=== PATIENT | female | born 1955 | race American Indian/Alaskan Native ===

== ENCOUNTER 2020-09-23 06:15 | Inpatient (IN) | payer MEDICARE ==
[2020-09-23 07:45] LABS: Basophils % (Auto) 0.5 % (0.0-1.8); Eosinophils # (Auto) 0.1 K/mm3 (0.0-0.4); Eosinophils % (Auto) 1.2 % (0.0-4.3); Hematocrit 35.8 % (30.3-42.9); Hemoglobin 11.7 gm/dl (10.1-14.3); Lymphocytes # (Auto) 1.6 K/mm3 (1.2-5.4); Lymphocytes % (Auto) 20.3 % (13.4-35.0); Mean Corpuscular HGB Conc 33 % (30-34); Mean Corpuscular Volume 81 fl (79-97); Monocytes # (Auto) 0.6 K/mm3 (0.0-0.8); Monocytes % (Auto) 7.9 % (0.0-7.3); Platelet Count 157 K/mm3 (140-440); Red Cell Distribution Width 16.6 % (13.2-15.2)
[2020-09-23 08:30] LABS: Alanine Aminotransferase 18 units/L (7-56); Albumin 3.5 g/dL (3.9-5); Blood Urea Nitrogen 10 mg/dL (7-17); Calcium 9.4 mg/dL (8.4-10.2); Hemolysis Index 6
[2020-09-23 08:31] LABS: BUN/Creatinine Ratio 17
[2020-09-23] MEDS ORDERED: POTASSIUM CHLORIDE ER 20 MEQ TAB PO ONE (09:32)
[2020-09-23] MEDS ORDERED: POTASSIUM CHLORIDE 10 MEQ 10 MEQ/100 ML BAG IV ONE (09:32)
[2020-09-23] MEDS ORDERED: SODIUM CHLORIDE 0.9% 1000 ML 1,000 ML IV ONE (09:33)
[2020-09-23] MEDS ORDERED: ONDANSETRON 4 MG/2 ML INJ IV ONE (09:33)
[2020-09-23] MEDS ORDERED: FAMOTIDINE 20 MG/2 ML INJ IV ONE (09:33)
[2020-09-23] MEDS ORDERED: MORPHINE 2 MG/1 ML INJ ONE (11:06)
[2020-09-23] MEDS ORDERED: LORazepam 2 MG/ML VIAL ONE (11:23)
[2020-09-23] MEDS: MORPHINE 4 MG/1 ML INJ IV ONE ×2 (12:06→13:26)
--- NOTE | 2020-09-23 12:37 | Cat Scan Report ---
CT abdomen pelvis w con INDICATION: MAIN. COMPARISON: None TECHNIQUE: Abdominal and pelvic CT exam performed. All CT scans at this location are performed using CT dose reduction for ALARA by means of automated exposure control. FINDINGS: CT ABDOMEN and PELVIS: Lung Bases: Small bilateral pleural effusions. Liver: No significant abnormality. Biliary: No significant abnormality. Spleen: No significant abnormality. Pancreas: No significant abnormality. Adrenals: No significant abnormality. Kidneys: No significant abnormality. Lymphatics: No lymphadenopathy. Vasculature: No significant abnormality. Bowel/Peritoneum: No significant abnormality. Pelvis: Fundal 3.8 cm subserosal lesion as seen on image 129 of series 2. There is peritoneal nodularity seen for example in the left upper quadrant on image 57 of series 2. L arge quantity of fluid is seen throughout the abdomen and pelvis which is resulting in mass effect on the bowel and liver no ovarian masses are identified.. There is no evidence of cirrhosis. Fluid is seen extending into mediastinum to a small sliding-type hiatal hernia. Osseous Structures: No aggressive osseous lesion. Additional Findings: None IMPRESSION: 1. There is a large quantity of fluid seen throughout the abdomen and pelvis which is resulting in ma ss effect on the bowel in the liver. There is also peritoneal nodularity and the findings are concern ing for peritoneal carcinomatosis and malignant ascites. There is a lesion seen in the fundus of the uterus which could be patients primary neoplasm. Recommend dedicated ultrasound of the pelvis for fur ther evaluation and paracentesis with fluid sampling. 2. Small bilateral pleural effusions. Signer Name: Parish Milton MD Signed: 09/23/2020 12:33 PM Workstation Name: [email or web address]
[2020-09-23 13:27] LABS: Bilirubin,Urine NEG (Negative); Blood,Urine SM (Negative); Color,Urine Amber (Yellow); Mucus,Urine 3+ /HPF; Urobilinogen,Urine < 2.0 mg/dL (<2.0)
--- NOTE | 2020-09-23 13:28 | Emergency Department Report ---
ED Abdominal Pain HPI - General Chief Complaint: Abdominal Pain Stated Complaint: SOB,VOMITING,NAUSEA,CP Time Seen by Provider: 09/23/20 09:26 Source: patient Mode of arrival: Ambulatory Limitations: No Limitations - History of Present Illness Initial Comments: Patient is a 65-year-old F Italian female who is presenting with abdominal pain. Patient states she has had progressively worsening swelling and distention of the abdomen for over the past 3 months. Patient also states nausea vomiting is worsened to the point where she is unable to keep anything down at this point. Patient states she has been constipated and has to take laxatives to even have small bowel movements. She denies fevers chills cough cold or congestion. Patient denies any vaginal bleeding. Severity scale (0 -10): 4 - Related Data Allergies Allergy/AdvReac Type Severity Reaction Status Date / Time No Known Allergies Allergy Verified 09/23/20 11:08 ED Review of Systems ROS: Stated complaint: SOB,VOMITING,NAUSEA,CP Other details as noted in HPI Comment: All other systems reviewed and negative ED Past Medical Hx - Past Medical History Previous Medical History?: Yes Hx Hypertension: Yes Additional medical history: Scitica - Surgical History Past Surgical History?: No - Social History Smoking Status: Never Smoker Substance Use Type: None ED Physical Exam - General Limitations: No Limitations General appearance: alert, in no apparent distress - Head Head exam: Present: atraumatic, normocephalic - Eye Eye exam: Present: normal appearance, PERRL, EOMI - ENT ENT exam: Present: mucous membranes moist - Neck Neck exam: Present: normal inspection - Respiratory Respiratory exam: Present: normal lung sounds bilaterally. Absent: respiratory distress, wheezes, rales, rhonchi - Cardiovascular Cardiovascular Exam: Present: normal rhythm, tachycardia. Absent: systolic murmur, diastolic murmur, rubs, gallop - GI/Abdominal GI/Abdominal exam: Present: distended, tenderness, rigid, normal bowel sounds. Absent: soft, guarding, rebound - Extremities Exam Extremities exam: Present: normal inspection - Back Exam Back exam: Present: normal inspection - Neurological Exam Neurological exam: Present: alert, oriented X3 - Psychiatric Psychiatric exam: Present: normal affect, normal mood - Skin Skin exam: Present: warm, dry, intact, normal color. Absent: rash ED Course Vital Signs 10/24/20 10/24/20 06:45 09:27 Temperature 98.5 F 98.4 F Pulse Rate 112 H 104 H Respiratory 16 16 Rate Blood Pressure 156/100 Blood Pressure 175/94 [Right] O2 Sat by Pulse 93 100 Oximetry ED Medical Decision Making - Lab Data Result diagrams: 09/23/20 07:09 09/23/20 07:09 Lab Results 09/23/20 09/23/20 Range/Units 07:09 07:09 WBC 8.1 (4.5-11.0) K/mm3 RBC 4.40 (3.65-5.03) M/mm3 Hgb 11.7 (10.1-14.3) gm/dl Hct 35.8 (30.3-42.9) % MCV 81 (79-97) fl MCH 27 L (28-32) pg MCHC 33 (30-34) % RDW 16.6 H (13.2-15.2) % Plt Count 157 (140-440) K/mm3 Lymph % (Auto) 20.3 (13.4-35.0) % Nance % (Auto) 7.9 H (0.0-7.3) % Eos % (Auto) 1.2 (0.0-4.3) % Baso % (Auto) 0.5 (0.0-1.8) % Lymph # (Auto) 1.6 (1.2-5.4) K/mm3 Nance # (Auto) 0.6 (0.0-0.8) K/mm3 Eos # (Auto) 0.1 (0.0-0.4) K/mm3 Baso # (Auto) 0.0 (0.0-0.1) K/mm3 Seg Neutrophils % 70.1 H (40.0-70.0) % Seg Neutrophils # 5.7 (1.8-7.7) K/mm3 Sodium 145 (137-145) mmol/L Potassium 2.8 L* (3.6-5.0) mmol/L Chloride 96.3 L (98-107) mmol/L Carbon Dioxide 33 H (22-30) mmol/L Anion Gap 19 mmol/L BUN 10 (7-17) mg/dL Creatinine 0.6 (0.6-1.2) mg/dL Estimated GFR > 60 ml/min BUN/Creatinine Ratio 17 % Glucose 127 H (65-100) mg/dL Calcium 9.4 (8.4-10.2) mg/dL Total Bilirubin 0.50 (0.1-1.2) mg/dL AST 33 (5-40) units/L ALT 18 (7-56) units/L Alkaline Phosphatase 104 (35-129) units/L Total Protein 7.0 (6.3-8.2) g/dL Albumin 3.5 L (3.9-5) g/dL Albumin/Globulin Ratio 1.0 % Lipase 28 (13-60) units/L - Radiology Data [facility] [address] [place] [address] Cat Scan Report Signed Patient: CECY AQUINO MR #: [id number] : 1955 Acct:[id number] Age/Sex: 65 / F ADM Date: 09/23/20 Loc: ED Attending Dr: Ordering Physician: YOHANA DIOR MD Date of Service: 09/23/20 Procedure(s): CT abdomen pelvis w con Accession Number(s): [id number] cc: YOHANA DIOR MD CT abdomen pelvis w con INDICATION: MAIN. COMPARISON: None TECHNIQUE: Abdominal and pelvic CT exam performed. All CT scans at this location are performed using CT dose reduction for ALARA by means of automated exposure control. FINDINGS: CT ABDOMEN and PELVIS: Lung Bases: Small bilateral pleural effusions. Liver: No significant abnormality. Biliary: No significant abnormality. Spleen: No significant abnormality. Pancreas: No significant abnormality. Adrenals: No significant abnormality. Kidneys: No significant abnormality. Lymphatics: No lymphadenopathy. Vasculature: No significant abnormality. Bowel/Peritoneum: No significant abnormality. Pelvis: Fundal 3.8 cm subserosal lesion as seen on image 129 of series 2. There is peritoneal nodularity seen for example in the left upper quadrant on image 57 of series 2. Large quantity of fluid is seen throughout the abdomen and pelvis which is resulting in mass effect on the bowel and liver no ovarian masses are identified.. There is no evidence of cirrhosis. Fluid is seen extending into mediastinum to a small sliding-type hiatal hernia. Osseous Structures: No aggressive osseous lesion. Additional Findings: None IMPRESSION: 1. There is a large quantity of fluid seen throughout the abdomen and pelvis which is resulting in mass effect on the bowel in the liver. There is also peritoneal nodularity and the findings are concerning for peritoneal carcinomatosis and malignant ascites. There is a lesion seen in the fundus of the uterus which could be patients primary neoplasm. Recommend dedicated ultrasound of the pelvis for further evaluation and paracentesis with fluid sampling. 2. Small bilateral pleural effusions. Signer Name: Parish Milton MD Signed: 09/23/2020 12:33 PM Workstation Name: [email or web address] - Medical Decision Making Patient had a low potassium from his malnutrition. This was replaced. CT does show large amounts of ascites which likely is carcinogenic. Patient will be admitted to the hospitalist service for further management Critical care attestation.: If time is entered above; I have spent that time in minutes in the direct care of this critically ill patient, excluding procedure time. ED Disposition Clinical Impression: Hypokalemia, Uterine mass Ascites Qualifiers: Ascites type: malignant Qualified Code(s): R18.0 - Malignant ascites Disposition: DC-09 OP ADMIT IP TO THIS HOSP Is pt being admited?: Yes Does the pt Need Aspirin: No Condition: Stable Forms: Accompanied Note Time of Disposition: 13:28
[2020-09-23 13:31] LABS: WBC,Urine < 1.0 /HPF (0.0-6.0)
--- NOTE | 2020-09-23 23:35 | History and Physical Report ---
History of Present Illness Date of examination: 09/23/20 Date of admission: 09/23/20 14:02 Chief complaint: Abd pain and distension 3 mnonths History of present illness: Patient is a 65-year-old F Ghanaian female who is presenting with abdominal pain. Patient states she has had progressively worsening swelling and distention of the abdomen for over the past 3 months. Patient also states nausea vomiting is worsened to the point where she is unable to keep anything down at this point. Patient states she has been constipated and has to take laxatives to even have small bowel movements. She denies fevers chills cough cold or congestion. Patient denies any vaginal bleeding. Severity scale (0 -10): 4 - Related Data Allergies Allergy/AdvReac Type Severity Reaction Status Date / Time No Known Allergies Allergy Verified 09/23/20 11:08 - Past Medical History Previous Medical History?: Yes --Hypertension: Yes Additional medical history: Sciatica - Surgical History Past Surgical History?: No - Social History Smoking Status: Never Smoker Substance Use Type: None Review of Systems ROS: Stated complaint: SOB,VOMITING,NAUSEA,CP Other details as noted in HPI Comment: All other systems reviewed and negative Medications and Allergies Allergies Allergy/AdvReac Type Severity Reaction Status Date / Time No Known Allergies Allergy Verified 09/23/20 11:08 Home Medications Medication Instructions Recorded Confirmed Last Taken Type Omeprazole 40 mg PO DAILY 09/23/20 09/23/20 Unknown History Sucralfate [Carafate] 1 gm PO ACHS 09/23/20 09/23/20 Unknown History amLODIPine [Norvasc] 5 mg PO DAILY 09/23/20 09/23/20 Unknown History Exam - Constitutional Vitals: Temp Pulse Resp BP Pulse Ox 97.6 F 94 H 20 136/74 92 09/23/20 15:39 09/23/20 15:39 09/23/20 15:39 09/23/20 15:39 09/23/20 15:39 General appearance: Present: no acute distress, well-nourished - EENT Eyes: Present: PERRL ENT: hearing intact, clear oral mucosa - Neck Neck: Present: supple, normal ROM - Respiratory Respiratory effort: normal Respiratory: bilateral: CTA - Cardiovascular Heart rate: 78 Rhythm: regular Heart Sounds: Present: S1 & S2. Absent: rub, click - Extremities Extremities: no ischemia, pulses intact, pulses symmetrical, No edema Peripheral Pulses: within normal limits - Abdominal General gastrointestinal: Present: soft, tender, distended, normal bowel sounds Localized gastrointestinal: tender: diffuse Female genitourinary: Present: normal - Rectal Rectal Exam: deferred - Integumentary Integumentary: Present: clear, warm, dry - Musculoskeletal Musculoskeletal: gait normal, strength equal bilaterally - Psychiatric Psychiatric: appropriate mood/affect, intact judgment & insight - Neurologic Neurologic: CNII-XII intact, moves all extremities - Allied Health Allied health notes reviewed: nursing, case management Results - Labs CBC & Chem 7: 09/25/20 07:03 09/25/20 07:03 Labs: Laboratory Last Values WBC 8.1 K/mm3 (4.5-11.0) 09/23/20 07:09 RBC 4.40 M/mm3 (3.65-5.03) 09/23/20 07:09 Hgb 11.7 gm/dl (10.1-14.3) 09/23/20 07:09 Hct 35.8 % (30.3-42.9) 09/23/20 07:09 MCV 81 fl (79-97) 09/23/20 07:09 MCH 27 pg (28-32) L 09/23/20 07:09 MCHC 33 % (30-34) 09/23/20 07:09 RDW 16.6 % (13.2-15.2) H 09/23/20 07:09 Plt Count 157 K/mm3 (140-440) 09/23/20 07:09 Lymph % (Auto) 20.3 % (13.4-35.0) 09/23/20 07:09 [place] % (Auto) 7.9 % (0.0-7.3) H 09/23/20 07:09 Eos % (Auto) 1.2 % (0.0-4.3) 09/23/20 07:09 Baso % (Auto) 0.5 % (0.0-1.8) 09/23/20 07:09 Lymph # (Auto) 1.6 K/mm3 (1.2-5.4) 09/23/20 07:09 [place] # (Auto) 0.6 K/mm3 (0.0-0.8) 09/23/20 07:09 Eos # (Auto) 0.1 K/mm3 (0.0-0.4) 09/23/20 07:09 Baso # (Auto) 0.0 K/mm3 (0.0-0.1) 09/23/20 07:09 Seg Neutrophils % 70.1 % (40.0-70.0) H 09/23/20 07:09 Seg Neutrophils # 5.7 K/mm3 (1.8-7.7) 09/23/20 07:09 Sodium 145 mmol/L (137-145) 09/23/20 07:09 Potassium 2.8 mmol/L (3.6-5.0) L* 09/23/20 07:09 Chloride 96.3 mmol/L (98-107) L 09/23/20 07:09 Carbon Dioxide 33 mmol/L (22-30) H 09/23/20 07:09 Anion Gap 19 mmol/L 09/23/20 07:09 BUN 10 mg/dL (7-17) 09/23/20 07:09 Creatinine 0.6 mg/dL (0.6-1.2) 09/23/20 07:09 Estimated GFR > 60 ml/min 09/23/20 07:09 BUN/Creatinine Ratio 17 % 09/23/20 07:09 Glucose 127 mg/dL (65-100) H 09/23/20 07:09 Calcium 9.4 mg/dL (8.4-10.2) 09/23/20 07:09 Total Bilirubin 0.50 mg/dL (0.1-1.2) 09/23/20 07:09 AST 33 units/L (5-40) 09/23/20 07:09 ALT 18 units/L (7-56) 09/23/20 07:09 Alkaline Phosphatase 104 units/L (35-129) 09/23/20 07:09 Total Protein 7.0 g/dL (6.3-8.2) 09/23/20 07:09 Albumin 3.5 g/dL (3.9-5) L 09/23/20 07:09 Albumin/Globulin Ratio 1.0 % 09/23/20 07:09 Lipase 28 units/L (13-60) 09/23/20 07:09 Urine Color Jesusita (Yellow) 09/23/20 Unknown Urine Turbidity Clear (Clear) 09/23/20 Unknown Urine pH 5.0 (5.0-7.0) 09/23/20 Unknown Ur Specific [place] 1.043 (1.003-1.030) H 09/23/20 Unknown Urine Protein 100 mg/dl mg/dL (Negative) 09/23/20 Unknown Urine Glucose (UA) Neg mg/dL (Negative) 09/23/20 Unknown Urine Ketones Tr mg/dL (Negative) 09/23/20 Unknown Urine Blood Sm (Negative) 09/23/20 Unknown Urine Nitrite Neg (Negative) 09/23/20 Unknown Urine Bilirubin Neg (Negative) 09/23/20 Unknown Urine Urobilinogen < 2.0 mg/dL (<2.0) 09/23/20 Unknown Ur Leukocyte Esterase Tr (Negative) 09/23/20 Unknown Urine WBC (Auto) < 1.0 /HPF (0.0-6.0) 09/23/20 Unknown Urine RBC (Auto) 1.0 /HPF (0.0-6.0) 09/23/20 Unknown U Epithel Cells (Auto) 13.0 /HPF (0-13.0) 09/23/20 Unknown Urine Mucus 3+ /HPF 09/23/20 Unknown - Imaging and Cardiology CT scan - abdomen: report reviewed Imaging and Cardiology: Abdominal CAT scan IMPRESSION: 1. There is a large quantity of fluid seen throughout the abdomen and pelvis which is resulting in mass effect on the bowel in the liver. There is also peritoneal nodularity and the findings are concerning for peritoneal carcinomatosis and malignant ascites. There is a lesion seen in the fundus of the uterus which could be patients primary neoplasm. Recommend dedicated ultrasound of the pelvis for further evaluation and paracentesis with fluid sampling. 2. Small bilateral pleural effusions. Carranza/IV: IV Catheter Type [Right INT / Saline Lock Antecubital] Assessment and Plan Advance Directives: Yes (Full code) VTE prophylaxis?: Chemical Plan of care discussed with patient/family: Yes - Patient Problems (1) Ascites Current Visit: Yes Status: Acute Qualifiers: Ascites type: malignant Qualified Code(s): R18.0 - Malignant ascites Plan to address problem: Paracentesis and fluid for cell count,chemistry and tumor cells (2) Hypokalemia Current Visit: Yes Status: Acute (3) Uterine mass Current Visit: Yes Status: Acute Plan to address problem: To refer to [facility] oncology (4) Peritoneal carcinomatosis Current Visit: Yes Status: Acute Plan to address problem: Sec to Uterine/Endometrial cancer Needs port ,Chemotherapy/XRT and Hemonc consult (5) DVT prophylaxis Current Visit: Yes Status: Acute Plan to address problem: On Heparin and GI prophylaxis
[2020-09-23] MEDS ORDERED: ONDANSETRON 4 MG/2 ML INJ IV PRN (23:43)
[2020-09-23] MEDS ORDERED: ACETAMINOPHEN 325 MG TAB PO PRN (23:43)
[2020-09-23] MEDS ORDERED: SODIUM CHLORIDE 0.9% 1000 ML 1,000 ML IV SCH (23:45)
[2020-09-24] MEDS: POTASSIUM CHLORIDE 10 MEQ 10 MEQ/100 ML BAG IV SCH ×4 (00:40→05:28)
[2020-09-24] MEDS: LACTULOSE 20 GM/30 ML ORAL LIQD PO PRN (06:25)
[2020-09-24] MEDS: SUCRALFATE 1 GM/10 ML ORAL LIQD PO SCH ×4 (08:07→21:46)
[2020-09-24] MEDS: amLODIPine 5 MG TAB PO SCH (09:47)
[2020-09-24] MEDS: PANTOPRAZOLE 40 MG TAB PO SCH (09:47)
[2020-09-24] MEDS ORDERED: NON-FORMULARY EACH (Omeprazole [Omeprazole] 40 MG) PO SCH (10:00)
--- NOTE | 2020-09-24 21:27 | Progress Note ---
Assessment and Plan - Patient Problems (1) Ascites Current Visit: Yes Status: Acute Qualifiers: Ascites type: malignant Qualified Code(s): R18.0 - Malignant ascites Plan to address problem: Paracentesis and fluid for cell count,chemistry and tumor cells (2) Hypokalemia Current Visit: Yes Status: Acute Plan to address problem: Supplemented (3) Uterine mass Current Visit: Yes Status: Acute Plan to address problem: To refer to [facility] oncology (4) Peritoneal carcinomatosis Current Visit: Yes Status: Acute Plan to address problem: Sec to Uterine/Endometrial cancer Needs port ,Chemotherapy/XRT and Hemonc consult (5) DVT prophylaxis Current Visit: Yes Status: Acute Plan to address problem: On Heparin and GI prophylaxis Subjective Date of service: 09/24/20 Principal diagnosis: Peritoneal carcinomatosis Interval history: Patient is a 65-year-old F Finnish female who is presenting with abdominal pain. Patient states she has had progressively worsening swelling and distention of the abdomen for over the past 3 months. Patient also states nausea vomiting is worsened to the point where she is unable to keep anything down at this point. Patient states she has been constipated and has to take laxatives to even have small bowel movements. She denies fevers chills cough cold or congestion. Patient denies any vaginal bleeding. Severity scale (0 -10): 4 Day 2 Same condition Waiting for paracentecis Objective - Constitutional Vitals: Vital Signs - 12hr 09/24/20 09/24/20 09/24/20 11:00 16:10 20:00 Temperature 98.4 F 98 F 98.4 F Pulse Rate 111 H 106 H 93 H Respiratory 20 20 18 Rate Blood Pressure 146/50 Blood Pressure 189/96 159/98 [Right] O2 Sat by Pulse 98 97 95 Oximetry General appearance: Present: no acute distress, well-nourished - EENT Eyes: PERRL, EOM intact ENT: hearing intact, clear oral mucosa Ears: bilateral: normal - Neck Neck: supple, normal ROM - Respiratory Respiratory effort: normal Respiratory: bilateral: CTA - Breasts Breasts: normal - Cardiovascular Heart rate: 78 Rhythm: regular Heart Sounds: Present: S1 & S2. Absent: gallop, rub Extremities: pulses intact, No edema, normal color, Full ROM - Gastrointestinal General gastrointestinal: Present: soft, tender, distended, normal bowel sounds Localized gastrointestinal: tender: diffuse Rectal Exam: deferred - Genitourinary Female genitourinary: normal - Integumentary Integumentary: clear, warm, dry - Musculoskeletal Musculoskeletal: 1, strength equal bilaterally - Neurologic Neurologic: moves all extremities - Psychiatric Psychiatric: memory intact, appropriate mood/affect, intact judgment & insight - Allied health notes Allied health notes reviewed: nursing, case management - Labs CBC & Chem 7: 09/25/20 07:03 09/25/20 07:03
[2020-09-24] MEDS ORDERED: POTASSIUM CHLORIDE ER 20 MEQ TAB PO ONE (21:28)
[2020-09-24] MEDS: HYDROmorphone 1 MG/1 ML INJ IV PRN (22:39)
[2020-09-24] MEDS: ONDANSETRON 4 MG/2 ML INJ IV PRN (22:40)
[2020-09-25 02:21] LABS: Blood Urea Nitrogen 9 mg/dL (7-17); Calcium 9.4 mg/dL (8.4-10.2); Hemolysis Index 104
[2020-09-25 02:36] LABS: BUN/Creatinine Ratio 15
[2020-09-25 07:53] LABS: Basophils % (Auto) 0.4 % (0.0-1.8); Eosinophils # (Auto) 0.1 K/mm3 (0.0-0.4); Eosinophils % (Auto) 1.4 % (0.0-4.3); Hematocrit 34.6 % (30.3-42.9); Hemoglobin 11.3 gm/dl (10.1-14.3); Lymphocytes # (Auto) 1.3 K/mm3 (1.2-5.4); Lymphocytes % (Auto) 18.1 % (13.4-35.0); Mean Corpuscular HGB Conc 33 % (30-34); Mean Corpuscular Volume 80 fl (79-97); Monocytes # (Auto) 0.6 K/mm3 (0.0-0.8); Platelet Count 133 K/mm3 (140-440); Red Blood Count 4.31 M/mm3 (3.65-5.03); Red Cell Distribution Width 17.2 % (13.2-15.2)
[2020-09-25 08:17] LABS: Alanine Aminotransferase 15 units/L (7-56); Albumin 3.5 g/dL (3.9-5); BUN/Creatinine Ratio 14; Blood Urea Nitrogen 10 mg/dL (7-17); Calcium 9.5 mg/dL (8.4-10.2); Hemolysis Index 11
[2020-09-25] MEDS: amLODIPine 5 MG TAB PO SCH (10:59)
[2020-09-25] MEDS: SUCRALFATE 1 GM/10 ML ORAL LIQD PO SCH ×4 (10:59→21:22)
[2020-09-25] MEDS: PANTOPRAZOLE 40 MG TAB PO SCH (10:59)
--- NOTE | 2020-09-25 11:38 | Consultation ---
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 FH[employer]; aunt young of breast cancer doesn't know her father data reviewed below Abc CT reviewed personally by me: very much ascites, GI tract compression EXAM: per pt weight is about 160 # looks better than I would have expected NAD abd distended IMPRESSION: presumed metastatic cancer, maybe MEDICAL OFFICE CLERK primary malignant-appearing ascites and pl effusions likley to benefit from antitumor therapy MCV 80 PLAN/REC: diagnostic/therapeutic paracentesis referral to MEDICAL OFFICE CLERK Oncologist after discharge consider port placement inpatient if feasible labs to include CEA, CA125, Fe, TIBC, coags discussed all of this with pt for 20 min Vital Signs Temp Pulse Resp BP Pulse Ox 98.1 F 98 H 18 146/72 93 09/25/20 07:56 09/25/20 07:56 09/25/20 07:56 09/25/20 07:56 09/25/20 07:56 Temperature -Last 24 Hours Temperature 98.1 F Temperature 98.3 F Temperature 98.2 F Temperature 98.4 F Temperature 98 F Active Medications Amlodipine Besylate (Amlodipine) 5 mg PO DAILY BHARTI Last Admin: 09/25/20 10:59 Dose: Not Given Documented by: Hydromorphone HCl (Dilaudid) 0.5 mg IV Q3H PRN PRN Reason: Pain , Severe (7-10) Last Admin: 09/24/20 22:39 Dose: 0.5 mg Documented by: Lactulose (Cephulac) 20 gm PO QHS PRN PRN Reason: Constipation Last Admin: 09/24/20 06:25 Dose: 20 gm Documented by: Ondansetron HCl (Zofran) 4 mg IV Q3H PRN PRN Reason: Nausea And Vomiting Last Admin: 09/24/20 22:40 Dose: 4 mg Documented by: Pantoprazole Sodium (Protonix) 40 mg PO DAILY BHARTI Last Admin: 09/25/20 10:59 Dose: Not Given Documented by: Laboratory Last Values WBC 7.4 K/mm3 (4.5-11.0) 09/25/20 07:03 Hgb 11.3 gm/dl (10.1-14.3) 09/25/20 07:03 Hct 34.6 % (30.3-42.9) 09/25/20 07:03 MCV 80 fl (79-97) 09/25/20 07:03 Plt Count 133 K/mm3 (140-440) L 09/25/20 07:03 Sodium 143 mmol/L (137-145) 09/25/20 07:03 Potassium 3.6 mmol/L (3.6-5.0) 09/25/20 07:03 Creatinine 0.7 mg/dL (0.6-1.2) 09/25/20 07:03 Estimated GFR > 60 ml/min 09/25/20 07:03 Calcium 9.5 mg/dL (8.4-10.2) 09/25/20 07:03 Total Bilirubin 0.50 mg/dL (0.1-1.2) 09/25/20 07:03 AST 29 units/L (5-40) 09/25/20 07:03 ALT 15 units/L (7-56) 09/25/20 07:03 Alkaline Phosphatase 104 units/L (35-129) 09/25/20 07:03 Urine Mucus 3+ /HPF 09/23/20 Unknown Medications and Allergies Allergies Allergy/AdvReac Type Severity Reaction Status Date / Time No Known Allergies Allergy Verified 09/23/20 11:08 Home Medications Medication Instructions Recorded Confirmed Last Taken Type Omeprazole 40 mg PO DAILY 09/23/20 09/23/20 Unknown History Sucralfate [Carafate] 1 gm PO ACHS 09/23/20 09/23/20 Unknown History amLODIPine [Norvasc] 5 mg PO DAILY 09/23/20 09/23/20 Unknown History Active Meds: Active Medications Acetaminophen (Tylenol) 650 mg PO Q4H PRN PRN Reason: Pain MILD(1-3)/Fever >100.5/CORONA Last Admin: 09/24/20 00:41 Dose: 650 mg Documented by: Amlodipine Besylate (Amlodipine) 5 mg PO DAILY [facility] Last Admin: 09/25/20 10:59 Dose: Not Given Documented by: Hydromorphone HCl (Dilaudid) 0.5 mg IV Q3H PRN PRN Reason: Pain , Severe (7-10) Last Admin: 09/24/20 22:39 Dose: 0.5 mg Documented by: Lactulose (Cephulac) 20 gm PO QHS PRN PRN Reason: Constipation Last Admin: 09/24/20 06:25 Dose: 20 gm Documented by: Ondansetron HCl (Zofran) 4 mg IV Q3H PRN PRN Reason: Nausea And Vomiting Last Admin: 09/24/20 22:40 Dose: 4 mg Documented by: Pantoprazole Sodium (Protonix) 40 mg PO DAILY [facility] Last Admin: 09/25/20 10:59 Dose: Not Given Documented by: Sodium Chloride (Sodium Chloride Flush Syringe 10 Ml) 10 ml IV BID [facility] Last Admin: 09/24/20 21:47 Dose: 10 ml Documented by: Sodium Chloride (Sodium Chloride Flush Syringe 10 Ml) 10 ml IV PRN PRN PRN Reason: LINE FLUSH Sucralfate (Carafate) 1 gm PO ACHS [facility] Last Admin: 09/25/20 10:59 Dose: Not Given Documented by: Exam - Constitutional Vitals: Temp Pulse Resp BP Pulse Ox 98.1 F 98 H 18 146/72 93 09/25/20 07:56 09/25/20 07:56 09/25/20 07:56 09/25/20 07:56 09/25/20 07:56 Results - Labs CBC & Chem 7: 09/25/20 07:03 09/25/20 07:03 Labs: Abnormal lab results 09/25/20 09/25/20 09/25/20 Range/Units 01:46 07:03 07:03 MCH 26 L (28-32) pg RDW 17.2 H (13.2-15.2) % Plt Count 133 L (140-440) K/mm3 [place]cd[place] % (Auto) 8.0 H (0.0-7.3) % Seg Neutrophils % 72.1 H (40.0-70.0) % Chloride 96.3 L 97.5 L (98-107) mmol/L Carbon Dioxide 34 H D (22-30) mmol/L Glucose 120 H 113 H (65-100) mg/dL Albumin 3.5 L (3.9-5) g/dL
--- NOTE | 2020-09-25 16:08 | Procedure Note ---
Date of procedure: 09/25/20 Pre-op diagnosis: ascites Post-op diagnosis: same Procedure: US paracentesis Findings: moderate to large ascites Anesthesia: local Manager Commercial Sales: NICOLE SARGENT Estimated blood loss: none Pathology: list (120cc) Specimen disposition: to lab Condition: stable Disposition: floor
[2020-09-25] MEDS: HYDROmorphone 1 MG/1 ML INJ IV PRN ×2 (17:18→21:22)
[2020-09-25 18:37] LABS: Monocytes Body Fluid 23 %; Total Cells Counted 100 /mm3
--- NOTE | 2020-09-25 19:50 | Progress Note ---
Assessment and Plan - Patient Problems (1) Ascites Current Visit: Yes Status: Acute Qualifiers: Ascites type: malignant Qualified Code(s): R18.0 - Malignant ascites Plan to address problem: Paracentesis and fluid for cell count,chemistry and tumor cells (2) Hypokalemia Current Visit: Yes Status: Acute Plan to address problem: Supplemented (3) Uterine mass Current Visit: Yes Status: Acute Plan to address problem: To refer to [facility] oncology (4) Peritoneal carcinomatosis Current Visit: Yes Status: Acute Plan to address problem: Sec to Uterine/Endometrial cancer Needs port ,Chemotherapy/XRT Oncology consult appreciated (5) DVT prophylaxis Current Visit: Yes Status: Acute Plan to address problem: On Heparin and GI prophylaxis Subjective Date of service: 09/25/20 Principal diagnosis: Uterine/Peritoneal carcinomatosis Interval history: Patient is a 65-year-old F Ivorian female who is presenting with abdominal pain. Patient states she has had progressively worsening swelling and distention of the abdomen for over the past 3 months. Patient also states nausea vomiting is worsened to the point where she is unable to keep anything down at this point. Patient states she has been constipated and has to take laxatives to even have small bowel movements. She denies fevers chills cough cold or congestion. Patient denies any vaginal bleeding. Severity scale (0 -10): 4 Day 2 Same condition Waiting for paracentecis Day #3) 220 Patient paracentesis Fluid sent for chemistry cell count. Hematology oncology consult appreciated Patient feels more comfortable Objective - Constitutional Vitals: Vital Signs - 12hr 09/25/20 09/25/20 09/25/20 07:56 11:28 19:24 Temperature 98.1 F 97.6 F 98.4 F Pulse Rate 98 H 94 H 99 H Respiratory 18 20 18 Rate Blood Pressure 146/72 154/95 140/92 O2 Sat by Pulse 93 99 92 Oximetry General appearance: Present: no acute distress, well-nourished - EENT Eyes: PERRL, EOM intact ENT: hearing intact, clear oral mucosa Ears: bilateral: normal - Neck Neck: supple, normal ROM - Respiratory Respiratory effort: normal Respiratory: bilateral: CTA - Breasts Breasts: normal - Cardiovascular Rhythm: regular Heart Sounds: Present: S1 & S2. Absent: gallop, rub Extremities: pulses intact, No edema, normal color, Full ROM - Gastrointestinal General gastrointestinal: Present: soft, non-tender, non-distended, distended, normal bowel sounds - Genitourinary Female genitourinary: normal - Integumentary Integumentary: clear, warm, dry - Musculoskeletal Musculoskeletal: 1, strength equal bilaterally - Neurologic Neurologic: moves all extremities - Psychiatric Psychiatric: memory intact, appropriate mood/affect, intact judgment & insight - Labs CBC & Chem 7: 09/25/20 07:03 09/25/20 07:03 Labs: Abnormal lab results 09/25/20 09/25/20 09/25/20 Range/Units 01:46 07:03 07:03 MCH 26 L (28-32) pg RDW 17.2 H (13.2-15.2) % Plt Count 133 L (140-440) K/mm3 Arthur % (Auto) 8.0 H (0.0-7.3) % Seg Neutrophils % 72.1 H (40.0-70.0) % Chloride 96.3 L 97.5 L (98-107) mmol/L Carbon Dioxide 34 H D (22-30) mmol/L Glucose 120 H 113 H (65-100) mg/dL Albumin 3.5 L (3.9-5) g/dL
[2020-09-26] MEDS: SUCRALFATE 1 GM/10 ML ORAL LIQD PO SCH ×4 (08:00→22:37)
[2020-09-26] MEDS: PANTOPRAZOLE 40 MG TAB PO SCH (09:10)
[2020-09-26] MEDS: amLODIPine 5 MG TAB PO SCH (09:10)
[2020-09-26] MEDS ORDERED: LACTULOSE 20 GM/30 ML ORAL LIQD ONE (11:44)
[2020-09-26] MEDS ORDERED: PANTOPRAZOLE 40 MG TAB PO ONE (11:44)
[2020-09-26] MEDS ORDERED: HYDROmorphone 1 MG/1 ML INJ ONE (11:44)
[2020-09-26] MEDS ORDERED: amLODIPine 5 MG TAB ONE (11:44)
[2020-09-26] MEDS ORDERED: SUCRALFATE 1 GM/10 ML ORAL LIQD ONE (11:44)
[2020-09-26] MEDS: HYDROmorphone 1 MG/1 ML INJ IV PRN ×2 (15:15→23:51)
[2020-09-26] MEDS: LACTULOSE 20 GM/30 ML ORAL LIQD PO PRN (15:55)
--- NOTE | 2020-09-26 20:24 | Consultation ---
History of Present Illness - Reason for Consult Consult date: 09/27/20 Port placement Requesting physician: HANG MEANS - History of Present Illness 65-year-old F Senegalese female who is presenting with abdominal pain. Patient states she has had progressively worsening swelling and distention of the abdomen for over the past 3 months. Patient also states nausea vomiting is worsened to the point where she is unable to keep anything down at this point. Patient states she has been constipated and has to take laxatives to even have small bowel movements. She denies fevers chills cough cold or congestion. Patient denies any vaginal bleeding. Vascular consulted for port placement. Discussed port placement with patient, but patient became quite annoyed and irate. Upset with lack of definitive diagnosis at this time. - Past Medical History Previous Medical History?: Yes --Hypertension: Yes Additional medical history: Sciatica - Surgical History Past Surgical History?: No - Social History Smoking Status: Never Smoker Substance Use Type: None Review of Systems ROS: Stated complaint: SOB,VOMITING,NAUSEA,CP Other details as noted in HPI Comment: All other systems reviewed and negative Medications and Allergies Allergies Allergy/AdvReac Type Severity Reaction Status Date / Time No Known Allergies Allergy Verified 09/23/20 11:08 Home Medications Medication Instructions Recorded Confirmed Last Taken Type Lactulose [Cephulac] 20 gm PO QHS PRN 30 Days oral.liqd 09/27/20 Unknown Rx Omeprazole 40 mg PO DAILY #30 09/27/20 Unknown Rx Sucralfate [Carafate] 1 gm PO ACHS 30 Days 09/27/20 Unknown Rx amLODIPine 5 mg PO DAILY #30 09/27/20 Unknown Rx oxyCODONE /ACETAMINOPHEN [Percocet 1 tab PO Q4HR #12 tab 09/27/20 Unknown Rx 5/325] Active Meds: Active Medications Acetaminophen (Tylenol) 650 mg PO Q4H PRN PRN Reason: Pain MILD(1-3)/Fever >100.5/CORONA Last Admin: 09/24/20 00:41 Dose: 650 mg Documented by: Amlodipine Besylate (Amlodipine) 5 mg PO DAILY BHARTI Last Admin: 09/26/20 09:10 Dose: 5 mg Documented by: Hydromorphone HCl (Dilaudid) 0.5 mg IV Q3H PRN PRN Reason: Pain , Severe (7-10) Last Admin: 09/26/20 15:15 Dose: 0.5 mg Documented by: Lactulose (Cephulac) 20 gm PO QHS PRN PRN Reason: Constipation Last Admin: 09/26/20 15:55 Dose: 20 gm Documented by: Ondansetron HCl (Zofran) 4 mg IV Q3H PRN PRN Reason: Nausea And Vomiting Last Admin: 09/24/20 22:40 Dose: 4 mg Documented by: Pantoprazole Sodium (Protonix) 40 mg PO DAILY [facility] Last Admin: 09/26/20 09:10 Dose: 40 mg Documented by: Sodium Chloride (Sodium Chloride Flush Syringe 10 Ml) 10 ml IV BID [facility] Last Admin: 09/26/20 09:10 Dose: 10 ml Documented by: Sodium Chloride (Sodium Chloride Flush Syringe 10 Ml) 10 ml IV PRN PRN PRN Reason: LINE FLUSH Sucralfate (Carafate) 1 gm PO ACHS [facility] Last Admin: 09/26/20 16:30 Dose: 1 gm Documented by: Exam - Constitutional Vitals: Temp Pulse Resp BP Pulse Ox 97.7 F 96 H 18 116/66 91 09/26/20 19:42 09/26/20 19:42 09/26/20 19:42 09/26/20 19:42 09/26/20 19:42 General appearance: Present: no acute distress - EENT Eyes: Present: EOM intact ENT: hearing intact - Respiratory Respiratory effort: normal - Abdominal General gastrointestinal: Present: distended (morbidly obese) - Psychiatric Psychiatric: appropriate mood/affect, cooperative Results - Labs CBC & Chem 7: 09/25/20 07:03 09/25/20 07:03 Assessment and Plan Late note due to EMR downtime 65 year old female with presumed malignancy and multiple medical issues including morbid obesity with request for port placement from the primary service. Discussed the situation with the patient and she declines port placement at this time. Patient understands risk of delaying treatment due to lack of port placement. She has lots of questions for the oncologist and wants a definitive diagnosis and stage prior to port placement upon my discussion with her. Provided card for [facility]. Can followup as outpatient for port placement.
[2020-09-26] MEDS ORDERED: MAGNESIUM HYDROXIDE (MOM) ORAL LIQD UDC PO PRN (22:36)
[2020-09-26] MEDS: ONDANSETRON 4 MG/2 ML INJ IV PRN (23:14)
--- NOTE | 2020-09-27 00:31 | Progress Note ---
Assessment and Plan - Patient Problems (1) Ascites Current Visit: Yes Status: Acute Qualifiers: Ascites type: malignant Qualified Code(s): R18.0 - Malignant ascites Plan to address problem: Paracentesis and fluid for cell count,chemistry and tumor cells (2) Hypokalemia Current Visit: Yes Status: Acute Plan to address problem: Supplemented (3) Uterine mass Current Visit: Yes Status: Acute Plan to address problem: To refer to [facility] oncology (4) Peritoneal carcinomatosis Current Visit: Yes Status: Acute Plan to address problem: Sec to Uterine/Endometrial cancer Needs port ,Chemotherapy/XRT Oncology consult appreciated Onc recommendation--- 'IMPRESSION: presumed metastatic cancer, maybe URBAN DESIGN CONSULTANT primary malignant-appearing ascites and pl effusions likley to benefit from antitumor therapy MCV 80 PLAN/REC: diagnostic/therapeutic paracentesis referral to URBAN DESIGN CONSULTANT Oncologist after discharge consider port placement inpatient if feasible labs to include CEA, CA125, Fe, TIBC, coags discussed all of this with pt for 20 min' (5) DVT prophylaxis Current Visit: Yes Status: Acute Plan to address problem: On Heparin and GI prophylaxis (6) Discharge planning issues Current Visit: Yes Status: Acute Plan to address problem: Patient maybe discharged tomorrow Check for CEA levels Maybe still pending Follow up with [facility] Super[facility] oncologist as outpatient Patient to be given CT abdomen CEA and labs foor f/u with URBAN DESIGN CONSULTANT Oncologist Subjective Date of service: 09/26/20 Principal diagnosis: Uterine/Peritoneal carcinomatosis Interval history: Patient is a 65-year-old F French female who is presenting with abdominal pain. Patient states she has had progressively worsening swelling and distention of the abdomen for over the past 3 months. Patient also states nausea vomiting is worsened to the point where she is unable to keep anything down at this point. Patient states she has been constipated and has to take laxatives to even have small bowel movements. She denies fevers chills cough cold or congestion. Patient denies any vaginal bleeding. Severity scale (0 -10): 4 Day 2 Same condition Waiting for paracentecis Day #3) 09/25/20 Patient paracentesis Fluid sent for chemistry cell count. Hematology oncology consult appreciated Patient feels more comfortable Day #4 09/26/2020 Patient more comfortable today after paracentesis Refuses port placement Appreciate vascular/IR consult Objective - Constitutional Vitals: Vital Signs - 12hr 09/26/20 09/26/20 09/26/20 15:00 15:15 19:42 Temperature 98.8 F 97.7 F Pulse Rate 92 H 96 H Respiratory 26 H 20 18 Rate Blood Pressure 116/66 Blood Pressure 131/63 [Right] O2 Sat by Pulse 97 91 Oximetry General appearance: Present: no acute distress, well-nourished - EENT Eyes: PERRL, EOM intact ENT: hearing intact, clear oral mucosa Ears: bilateral: normal - Neck Neck: supple, normal ROM - Respiratory Respiratory effort: normal Respiratory: bilateral: CTA - Breasts Breasts: normal - Cardiovascular Heart rate: 78 Rhythm: regular Heart Sounds: Present: S1 & S2. Absent: gallop, rub Extremities: pulses intact, No edema, normal color, Full ROM - Gastrointestinal General gastrointestinal: Present: soft, non-tender, non-distended, distended, normal bowel sounds - Genitourinary Female genitourinary: normal - Integumentary Integumentary: clear, warm, dry - Musculoskeletal Musculoskeletal: 1, strength equal bilaterally - Neurologic Neurologic: moves all extremities - Psychiatric Psychiatric: memory intact, appropriate mood/affect, intact judgment & insight - Labs CBC & Chem 7: 09/25/20 07:03 09/25/20 07:03
[2020-09-27] MEDS: SUCRALFATE 1 GM/10 ML ORAL LIQD PO SCH ×2 (07:35→11:28)
--- NOTE | 2020-09-27 08:28 | Discharge Summary ---
Providers - Providers Date of Admission: 09/23/20 14:02 Date of discharge: 09/27/20 Attending physician: ANTONIO JENNINGS 09/23/20 23:41 Consult to Physician [CONS] Routine Comment: Consulting Provider: ANAMARIA COLLINS Physician Instructions: Reason For Exam: Uterine cancer with peritoneal carcinomatosis 09/25/20 12:11 Consult to Case Management [CONS] Routine Services Needed at Discharge: Hot Patcher Other Notified:: cm notified Comment:: referral to [facility] REFLOW OPERATOR oncologist on her health plan 09/25/20 19:48 Consult to Physician [CONS] Routine Comment: Consulting Provider: SCARLET POLO Physician Instructions: Reason For Exam: Port placement Primary care physician: CLAIMS INVESTIGATOR Hospitalization Reason for admission: abd pain and distention Condition: Stable Hospital course: 65YO overweight AA woman with abd distension over 2 months who presented to [facility] emergency room with vomiting, worsening abd pain, constipation. Patient was evaluated and found to have abnormal imaging with a uterus mass and peritoneal tumors. Patient reported 10 pound weight loss. She also reported recently visiting walk-in clinic for difficulty breathing-->prescribed Abx. Patient was admitted with diagnosis abdominal pain/abdominal distention and uterine mass. S mika admission, abd CT scan showed fluid consistent with moderate to severe ascites, nodulatiry and a pelvic mass. The patient was seen by oncology in consultation who reported presumed metastatic cancer likely REFLOW OPERATOR primary. Patient with malignant appearing ascites and pleural effusions. Oncology order for port placement as an inpatient with IR but patient refused. Tumor markers were ordered and are pending and will be followed up as an outpatient. Interventional radiology discussed the situation with the patient and she declines port placement at this time. Patient understands risk of delaying treatment due to lack of port placement. Patient can follow-up as an outpatient for port placement and follow-up with REFLOW OPERATOR oncology per Dr. Collins. Patient voiced understanding to me the importance of follow-up. Dedicated discharge time 35 minutes. Disposition: TO HOME OR SELFCARE Time spent for discharge: 35 - Discharge Diagnoses (1) Ascites Status: Acute Qualifiers: Ascites type: malignant Qualified Code(s): R18.0 - Malignant ascites (2) Hypokalemia Status: Acute (3) Peritoneal carcinomatosis Status: Acute (4) Uterine mass Status: Acute Core Measure Documentation - Palliative Care Palliative Care/ Comfort Measures: Not Applicable - Core Measures Any of the following diagnoses?: none Exam - Constitutional Vitals: Temp Pulse Resp BP Pulse Ox 98.0 F 74 18 144/57 96 09/27/20 07:25 09/27/20 07:23 09/27/20 07:23 09/27/20 07:23 09/27/20 07:23 General appearance: Present: no acute distress, well-nourished - EENT Eyes: Present: PERRL ENT: hearing intact, clear oral mucosa - Neck Neck: Present: supple, normal ROM - Respiratory Respiratory effort: normal Respiratory: bilateral: CTA - Cardiovascular Heart Sounds: Present: S1 & S2. Absent: rub, click - Extremities Extremities: pulses symmetrical, No edema Peripheral Pulses: within normal limits - Abdominal General gastrointestinal: Present: soft, non-tender, non-distended, normal bowel sounds Female genitourinary: Present: normal - Integumentary Integumentary: Present: clear, warm, dry - Musculoskeletal Musculoskeletal: gait normal, strength equal bilaterally - Psychiatric Psychiatric: appropriate mood/affect, intact judgment & insight - Neurologic Neurologic: CNII-XII intact, moves all extremities Plan Activity: advance as tolerated Weight Bearing Status: Weight Bear as Tolerated Diet: regular Additional Instructions: Needs follow-up with Dr. Collins to determine REFLOW OPERATOR oncology. Also follow-up with Dr. Cr with regards to port placement. Follow up with: PRIMARY CAREMD [Primary Care Provider] - 7 Days ANAMARIA COLLINS MD [Staff Physician] - 7 Days NICOLÁS CR MD [Staff Physician] - 7 Days Forms: Accompanied Note Prescriptions: amLODIPine 5 mg PO DAILY #30 Sucralfate [Carafate] 1 gm PO ACHS 30 Days Lactulose [Cephulac] 20 gm PO QHS PRN 30 Days oral.liqd PRN Reason: Constipation Omeprazole 40 mg PO DAILY #30 oxyCODONE /ACETAMINOPHEN [Percocet 5/325] 1 tab PO Q4HR #12 tab
--- NOTE | 2020-09-27 12:36 | Progress Note ---
Subjective Principal diagnosis: Uterine/Peritoneal carcinomatosis Interval history: 65YO overweight AA woman with new dx presumed cancer affecting abd/pelvis, ascited had massive ascites-->s/p; paracentesis draining >3L fluid feels better, able to eat, able to have BM's refused port planning discharge EXAM: more comfortable than she was 09/25 IMPRESSION: presumed metastatic cancer, maybe PLANT WRAPPER primary malignant-appearing ascites and pl effusions likely to benefit from antitumor therapy MCV 80 PLAN/REC: s/p diagnostic/therapeutic paracentesis-->awaiting path interpretation referral to PLANT WRAPPER Oncologist after discharge discussed all of this with pt for 20 min told her to seek PLANT WRAPPER ONC Morales to plan antitumor treatment told her that ascites is likely marta reaccumulate within weeks Objective - Constitutional Vitals: Vital Signs - 12hr 09/27/20 09/27/20 09/27/20 04:50 07:23 07:25 Temperature 97.6 F 98.0 F Pulse Rate 104 H 74 Respiratory 18 18 Rate Blood Pressure 115/76 144/57 O2 Sat by Pulse 92 96 Oximetry 09/27/20 09/27/20 09:45 11:21 Temperature Pulse Rate 96 H 107 H Respiratory 18 Rate Blood Pressure 155/72 105/67 O2 Sat by Pulse 97 97 Oximetry - Labs CBC & Chem 7: 09/25/20 07:03 09/25/20 07:03 Medications & Allergies - Medications Allergies/Adverse Reactions: Allergies No Known Allergies Allergy (Verified 09/23/20 11:08) Home Medications: Home Medications Medication Instructions Recorded Confirmed Last Taken Type Lactulose [Cephulac] 20 gm PO QHS PRN 30 Days oral.liqd 09/27/20 Unknown Rx Omeprazole 40 mg PO DAILY #30 09/27/20 Unknown Rx Sucralfate [Carafate] 1 gm PO ACHS 30 Days 09/27/20 Unknown Rx amLODIPine 5 mg PO DAILY #30 09/27/20 Unknown Rx oxyCODONE /ACETAMINOPHEN [Percocet 1 tab PO Q4HR #12 tab 09/27/20 Unknown Rx 5/325] Active Medications: Generic Name Dose Route Start Last Admin Trade Name Freq PRN Reason Stop Dose Admin Acetaminophen 650 mg 09/23/20 23:43 09/24/20 00:41 Tylenol PO 650 mg Q4H PRN Administration Pain MILD(1-3)/Fever >100.5/CORONA Amlodipine Besylate 5 mg 09/24/20 10:00 09/26/20 09:10 Amlodipine PO 5 mg DAILY BHARTI Administration Hydromorphone HCl 0.5 mg 09/24/20 22:13 09/26/20 23:51 Dilaudid IV 0.5 mg Q3H PRN Administration Pain , Severe (7-10) Lactulose 20 gm 09/23/20 23:43 09/26/20 15:55 Cephulac PO 20 gm QHS PRN Administration Constipation Magnesium Hydroxide 30 ml 09/26/20 22:36 09/26/20 23:51 Milk Of Magnesia PO 30 ml Q4H PRN Administration Constipation Ondansetron HCl 4 mg 09/24/20 22:14 09/26/20 23:14 Zofran IV 4 mg Q3H PRN Administration Nausea And Vomiting Pantoprazole Sodium 40 mg 09/24/20 10:00 09/26/20 09:10 Protonix PO 40 mg DAILY BHARTI Administration Sodium Chloride 10 ml 09/24/20 10:00 09/26/20 22:37 Sodium Chloride Flush Syringe 10 Ml IV 10 ml BID BHARTI Administration Sodium Chloride 10 ml 09/23/20 23:43 Sodium Chloride Flush Syringe 10 Ml IV PRN PRN LINE FLUSH Sucralfate 1 gm 09/24/20 07:30 09/27/20 11:28 Carafate PO 1 gm ACHS BHARTI Administration
[2020-09-27] MEDS: HYDROmorphone 1 MG/1 ML INJ IV PRN (13:43)
[2020-09-27] MEDS: ONDANSETRON 4 MG/2 ML INJ IV PRN (13:43)
[2020-09-27 16:15] VITALS: BP 114/70
--- NOTE | 2020-09-28 09:01 | Ultrasound Report ---
ULTRASOUND-GUIDED PARACENTESIS HISTORY: Ascites. PROCEDURE: The risks (including but not limited to bleeding, infection, and bowel injury) and benefi ts were explained to the patient and informed consent was obtained. A time out procedure was perform ed. Ultrasound was used to evaluate the abdomen and locate the largest ascites fluid pocket. Once the sk in was marked, the procedure site was prepped and draped in the usual sterile fashion and lidocaine w as used for local anesthesia. A skin wilfrido was made and a 5 Albanian centesis catheter was placed. The patient was monitored closely throughout the procedure, and a total of 6800 mL of clear yellow fluid was aspirated. Samples were sent to the lab for further evaluation per the primary clinicians order s. The patient tolerated the procedure well with no complications. IMPRESSION: Successful ultrasound-guided paracentesis as described. Signer Name: Vitor uGerrero Jr, MD Signed: 09/28/2020 8:56 AM Workstation Name: [id number]
[2020-10-02 11:15] LABS: Total Protein,Body Fluid < 3.0 (15.0-45.0)
[2020-10-02 11:16] LABS: LDH,Body Fluid 179
== END 2020-09-27 18:28 | disposition home or self-care (01) | DRG 375 ==
LOC: ED 06:15 → OBSVTOIN 14:02 → 3B-SURG 14:02
PROVIDERS: ADMIT Internal Medicine; ATTEND Hospitalist
PROC: 0W9G30Z Drainage of Peritoneal Cavity with Drainage Device, Percutaneous Approach (ICD-10-PCS; principal; 2020-09-23)
DX: C78.6 Secondary malignant neoplasm of retroperitoneum and peritoneum (principal); R18.0 Malignant ascites; J90 Pleural effusion, not elsewhere classified; Z68.43 Body mass index [BMI] 50.0-59.9, adult; C54.1 Malignant neoplasm of endometrium; N85.8 Other specified noninflammatory disorders of uterus; E87.6 Hypokalemia; I10 Essential (primary) hypertension; E66.01 Morbid (severe) obesity due to excess calories
CPT/HCPCS: 36415; 49083; 74177; 80048; 80053; 81001; 82947; 83605; 83690; 84160; 85025; 88112; 88305; 88341; 88342; 89051; 93005; 96365; 96375; 96376; G0378; J1170; J2060; J2270; J2405; J3480; J7030; Q9967